=== PATIENT | female | born 1965 | race Caucasian/White ===

== ENCOUNTER 2020-01-17 20:10 | Emergency (ER) | payer MEDICAID, OTHER ==
[~2020-01-17] VITALS: Ht 170.2 cm; Wt 136.1 kg
[2020-01-17 20:16] VITALS: BP 159/93
--- NOTE | 2020-01-17 20:20 | NUR ---
QUINCY GARCIA AT BEDSIDE EVALUATINGPT.
--- NOTE | 2020-01-17 20:22 | NUR ---
PT AMBULATED TO BED 4 WITH STEADY GAIT
[2020-01-17 20:30] VITALS: BP 159/93
--- NOTE | 2020-01-17 20:31 | NUR ---
55F PT PRESENTS TO ED WITH C/O LT EAR PAIN X 4 DAYS. STATES THAT THEY TRIED TO SCRATCH INNER EAR WITH Q-TIP AND CAUSED A LITTLE BLEEDING FROM PUNCTURING EAR DRUM. +SORE THROAT SECONDARY TO LT EAR PAIN. DENIES SOB/COUGH. DENIES N/V/D. RR EVEN AND LABORED. HEART SOUNDS EVEN AND REGULAR. PMHX: DENIES RX; DENIES NKA NEGATIVE FOR COVID SCREENING. WEARING MASK.
--- NOTE | 2020-01-17 20:37 | NUR ---
Patient discharged with v/s stable. Written and verbal after care instructions given and explained. Patient alert, oriented and verbalized understanding of instructions. Ambulatory with steady gait. All questions addressed prior to discharge. ID band removed. Patient advised to follow up with PMD. Rx of MOTRIN AND CORTICOSPORIN given. Patient educated on indication of medication including possible reaction and side effects. Opportunity to ask questions provided and answered.
== END 2020-01-17 20:36 | disposition home or self-care (01) ==
LOC: MED 20:10
DX: H60.92 Unspecified otitis externa, left ear (principal)
CPT/HCPCS: 99283

== ENCOUNTER 2022-11-02 15:24 | Emergency (ER) | payer MEDICAID ==
[~2022-11-02] VITALS: Ht 167.6 cm; Wt 113.4 kg
[2022-11-02 15:40] VITALS: BP 156/95
--- NOTE | 2022-11-02 16:34 | NUR ---
IRRIGATED WITH SOLUTION OF HYDROGEN PEROXIDE AND NS, SMALL FOREIGN OBJECT CAME OUT. PT STATED IMPROVEMENT IN EARING AFTER. DENIED DIZZINESS AND SENT TO WAITING ROOM
[2022-11-02 16:57] VITALS: BP 156/95
--- NOTE | 2022-11-02 16:57 | NUR ---
Patient discharged with v/s stable. Written and verbal after care instructions given and explained. Patient verbalized understanding. Ambulatory with steady gait. All questions addressed prior to discharge. Advised to follow up with PMD.
== END 2022-11-02 16:57 | disposition home or self-care (01) ==
LOC: MED 15:24
DX: T16.2XXA Foreign body in left ear, initial encounter (principal); R03.0 Elevated blood-pressure reading, without diagnosis of hypertension; X58.XXXA Exposure to other specified factors, initial encounter; Y92.89 Other specified places as the place of occurrence of the external cause; Y93.89 Activity, other specified; Y99.8 Other external cause status
CPT/HCPCS: 99282; 99284